=== PATIENT | female | born 1970 | race Caucasian/White ===

== ENCOUNTER → 2017-11-11 | Outpatient (CLI) | payer BC ==
[~2017-11-11] MED LIST: AMO875 PO; ASCO-182 PO; CRAN200C5 PO; LACT1CAP6 PO; LORA-763 PO; OMEG-177; mvi
--- NOTE | 2017-11-11 16:17 | RADIOLOGY IMAGING REPORT ---
FACILITY: [facility] [place] PATIENT NAME: Arlette Chambers : 1970 MR: [id number] V: [id number] EXAM DATE: ORDERING PHYSICIAN: DAVIDA ZAMARRIPA TECHNOLOGIST: Location: [facility] Patient: Arlette Chambers : 1970 Visit/Account:[id number] Date of Sevice: 11/11/2017 C SPINE W/O CONTRAST COMPARISON: None Additional pertinent history: Dizziness with neck pain with previous C1 spine fracture. Technique: Multiplanar multisequence cervical spine MRI was performed without gadolinium enhancement. FINDINGS: Vertebral body height and alignment: Negative Vertebral marrow signal: Negative Vertebral bodies: Negative, specifically no evidence of underlying fracture involving the C1 vertebra l body on today's exam. Cervical spinal cord signal, craniocervical junction and visualized posterior fossa: Negative Surrounding soft tissues: Negative Inspection of the disc spaces reveal the following: C1-C2: Negative C2-C3: Negative C3-C4: Negative C4-C5: Negative C5-C6: Minimal circumferential disc bulging with facet hypertrophic changes. No significant canal or neural foraminal narrowing. C6-C7: Negative C7-T1: Negative Impression: 1. Mild spondylitic change at C5-C6. 2. No underlying canal or neural foraminal narrowing involving the cervical spine. Report Dictated By: Mat Wiseman MD at 11/11/2017 4:11 PM Report E-Signed By: Mat Wiseman MD at 11/11/2017 4:13 PM WSN:[id number]
== END ==
LOC: MRI 12:47
PROVIDERS: ATTEND Family Medicine
DX: M47.892 Other spondylosis, cervical region (principal)
CPT/HCPCS: 72141